=== PATIENT | male | born 1970 | race Caucasian/White ===

== ENCOUNTER 2023-07-18 03:29 | Emergency (ER) | payer BC, SELFPAY ==
[2023-07-18 03:29] VITALS: BP 175/109; PULSE 86; RESP 18; TEMP 36.5; O2SAT 99; BMI 29.6
--- NOTE | 2023-07-18 03:29 | XR_ITS ---
PROCEDURE INFORMATION: Exam: XR Chest Exam date and time: 07/18/2023 3:32 AM Age: 52 years old Clinical indication: Pain; Chest pressure; Additional info: Cp TECHNIQUE: Imaging protocol: Radiologic exam of the chest. Views: 1 view. COMPARISON: No relevant prior studies available. FINDINGS: Lungs: Unremarkable. No consolidation. Pleural spaces: Unremarkable. No pleural effusion. No pneumothorax. Heart/Mediastinum: Unremarkable. No cardiomegaly. Bones/joints: Unremarkable. IMPRESSION: No acute cardiopulmonary process.
--- NOTE | 2023-07-18 03:31 | ECG_ITS ---
APPROVED REPORT Exam: Resting ECG HR:77 bpm ECG Measurements Heart Rate 77 AXES SD 171 P 67 QRSd 117 QRS 39 QT 397 T 50 QTc 428 Conclusion SINUS RHYTHM MODERATE INTRAVENTRICULAR CONDUCTION DELAY [110+ ms QRS DURATION] BORDERLINE ECG UNCONFIRMED REPORT Electronically signed by : Jason Smart MD 07/18/2023 13:08:21
--- NOTE | 2023-07-18 03:49 | ED_ITS ---
Discharge Plan Disposition Patient Disposition: Home, Self-Care Referrals Follow up/Referrals: Quinn Lacy [Primary Care Provider] - See instructions Activity Restrictions/Add. Instructions Additional Instructions/Restrictions: Please follow-up with your primary care provider. Please return to the emergency department if you develop any new or worsening symptoms or become concerned for your health. Clinical Impressions Clinical Impression: Chest pain Qualifiers: Chest pain type: unspecified Qualified Code(s): R07.9 - Chest pain, unspecified Discharge ED Provider: Abhishek Lynn General Adult HPI General Chief complaint: Chest Pain Stated complaint: cp Time Seen by Provider: 07/18/23 03:31 Mode of Arrival: Ambulatory Source of Information: Patient Limitations: No Limitations Description of Symptoms (Recalled from ER Triage Doc. by RN): Pt presents with left anterior chest pain that began around 1800 after the pt finished his workshift. He thought maybe he pulled a muscle. Around 0300 pt awoke with increased pain. No cardiac hx, denies any SOA or nausea. History of Present Illness HPI narrative: 52-year-old male presents with central chest pain. Reports he felt some this evening, he awoke because the pain was worse. Reports some radiation to the left side. He reports no cardiac history. Reports he takes medications for hypertension. He denies any shortness of breath. Related Data Allergies Allergy/AdvReac Type Severity Reaction Status Date / Time No Known Allergies Allergy Verified 07/18/23 03:55 [facility] Disclaimer: The information contained in this section may have been updated after the patient was seen, as this information can be updated by other users. Social History Smoking Status: Never smoker alcohol intake: former current occupational status: employed Travel in the last 8 weeks: None ROS Obtained: Yes All systems reviewed & no additional complaints except as documented Physical Exam General General appearance: alert and in no apparent distress Head Head exam: atraumatic and normocephalic Eye Eye exam: Present normal appearance, PERRL and EOMI ENT ENT exam: Present normal oropharynx and normal external ear exam Neck Neck exam: Present normal inspection and full ROM Chest Chest inspection: Present normal inspection and symmetric chest wall rise; Absent tenderness Respiratory Respiratory exam: Present normal lung sounds bilaterally; Absent respiratory distress Cardiovascular Cardiovascular exam: Present regular rate and normal rhythm Abdominal Exam Abdominal exam: Present soft; Absent distention, tenderness or guarding Extremities Exam Extremities exam: Present normal inspection; Absent edema or joint swelling Back Exam Back exam: Present normal inspection; Absent tenderness Neurological Exam Neurological exam: Present alert and oriented X3; Absent motor sensory deficit Psychiatric Psychiatric exam: Present normal affect and normal mood Skin Skin exam: Present warm, dry and normal color Lymphatic Lymphatic Findings: no adenopathy Medical Decision Making Medical Records Medical records reviewed: Yes I reviewed the patient's medical records. Danny Inquiry Pt receiving controlled substance: No Danny was queried for this patient: No Vital Signs: 07/18/23 03:29 07/18/23 06:00 Temperature 97.7 F 97.7 F Temperature Source Oral Oral Pulse Rate 78 Pulse Rate [Left] 86 Respiratory Rate 18 18 Blood Pressure 154/96 H Blood Pressure [Right Arm] 175/109 H Blood Pressure Mean [Right Arm] 131 Blood Pressure Source Automatic Cuff Blood Pressure Source [Right Arm] Automatic Cuff Blood Pressure Position Sitting Blood Pressure Position [Right Arm] Sitting 02 Sat by Pulse Oximetry 99 Oxygen Delivery Method Room Air Room Air Lab Data Lab results reviewed: Yes I reviewed the patient's lab results. Lab Results 07/18/23 03:33: WBC 8.5, RBC 4.77, Hgb 14.8, Hct 44.0, MCV 92.4, MCH 31.1, MCHC 33.7, RDW 13.4, Plt Count 214, MPV 8.1, Neut % (Auto) 49.3, Lymph % (Auto) 38.7, Drew % (Auto) 7.2, Eos % (Auto) 3.7, Baso % (Auto) 1.0, Neut # (Auto) 4.2, Lymph # (Auto) 3.3, Drew # (Auto) 0.6, Eos # (Auto) 0.3, Baso # (Auto) 0.1, D-Dimer 0.45, Sodium 142, Potassium 3.5, Chloride 103, Carbon Dioxide 31 H, Anion Gap 11.5, BUN 12, Creatinine 1.10, Estimated Creat Clear 126, Estimated GFR 70, Est GFR ( Amer) 85, Glucose 92, Calcium 8.8, Total Bilirubin 0.5, AST 39, ALT 34, Alkaline Phosphatase 63, Troponin I < 0.01, Total Protein 7.7, Albumin 4.2, Globulin 3.5 H, Albumin/Globulin Ratio 1.2 07/18/23 05:30: Troponin I < 0.01 07/18/23 03:33 07/18/23 03:33 Orders (Tests/Meds): ED MEDICATIONS Discontinued Medications Generic Name Dose Route Start Last Admin Trade Name Freq PRN Reason Stop Dose Admin Acetaminophen 1,000 mg 07/18/23 03:44 07/18/23 03:51 Acetaminophen 500mg Tab PO 07/18/23 03:45 1,000 mg ONCE ONE Administration Aspirin 325 mg 07/18/23 03:44 07/18/23 03:51 Aspirin 325mg Tablet PO 07/18/23 03:45 325 mg ONCE ONE Administration Belladonna Alkaloids 60 ml 07/18/23 03:44 07/18/23 03:51 Belladonna Alkaloids 60 Ml Ml PO 07/18/23 03:45 60 ml ONCE ONE Administration Nitroglycerin 0.4 mg 07/18/23 03:44 07/18/23 03:52 Nitroglycerin 0.4mg Sl Tablet SL 08/17/23 03:43 0.4 mg Q5MINP PRN Administration Chest Pain ORDERS Category Date Time Status Chest XR -- portable [XR chest portable] Stat Exams 07/18/23 03:29 Completed CBC w/Auto Diff [Complete Blood Count Auto Diff] Stat Lab 07/18/23 03:33 Completed CMP [Comprehensive Metabolic Panel] Stat Lab 07/18/23 03:33 Completed D-Dimer Stat Lab 07/18/23 03:33 Completed Troponin I Q3H Lab 07/18/23 03:33 Completed Troponin I Q3H Lab 07/18/23 05:30 Completed ECG initial Besson Routine Y 07/18/23 03:31 Completed ECG Data Tracing #1: I reviewed this ECG and interpreted as documented below: Sinus rhythm, rate of 77, no concerning ST or T wave changes. ECG initial impression date: 07/18/23 ECG initial impression time: 03:36 HEART Score History (anamnesis): Moderately suspicious ECG: Normal Age: 45-65 years Risk factors: 1-2 risk factors Troponin: </= normal limit HEART Score: 3 Medical Decision Narrative: 52-year-old male, history of hypertension presents with central chest pain rating to the left side since yesterday evening, woke him from sleep today.. History was obtained via conversation with patient, family. On arrival, patient is [afebrile, hemodynamically stable, satting appropriately, alert, oriented x4, GCS 15], moving all extremities spontaneously. Full physical exam performed and significant for no significant physical exam abnormalities. Differential includes but is not limited to musculoskeletal chest pain, GERD, ACS, PE, pneumonia, pneumothorax. Patient was given full dose aspirin, GI cocktail for symptomatic management and correction of underlying abnormalities. Workup initiated including CBC CMP troponin D-dimer (unable to PERC out secondary to age) chest x-ray EKG. On re-evaluation, patient [remains afebrile, HD stable.] Patient reports symptomatic improvement. Laboratory workup independently interpreted by me and significant for initial negative troponin, CBC and CMP unremarkable, D-dimer within normal limits. Imaging independently interpreted by me and significant for chest x-ray without focal lung opacity or pneumothorax. See radiology read for full review of final results. EKG independently interpreted by me and significant for normal sinus rhythm as documented above. On reassessment, repeat troponin negative. Low concern for emergent pathology at this time. Patient encouraged to follow-up with PCP/cardiology. Procedures Risk/Benefits of Procedure(s) Were Explained: Yes Critical Care Critical Care Time Critical Care Time: No
[2023-07-18] MEDS: BELLADONNA ALKALOIDS 60 ML ML PO (03:51)
[2023-07-18] MEDS: ACETAMINOPHEN 500MG TAB 1000 MG PO (03:51)
[2023-07-18] MEDS: ASPIRIN 325MG TABLET 325 MG PO (03:51)
[2023-07-18] MEDS: NITROGLYCERIN 0.4MG SL TABLET 0.400000000000000022 MG SL (03:52)
[2023-07-18 03:54] LABS: Basophils # 0.1 K/mm3 (0-0.2); Eosinophils # 0.3 K/mm3 (0.0-0.4); Eosinophils % 3.7 % (0.1-12.0); Hemoglobin 14.8 g/dL (14.1-18.0); Lymphocytes # 3.3 K/mm3 (0.7-4.5); Lymphocytes % 38.7 % (10-50); Mean Corpuscular HGB Conc 33.7 g/dL (31.8-35.4); Mean Corpuscular Hemoglobin 31.1 pg (27.0-31.2); Mean Corpuscular Volume 92.4 fl (80-94); Mean Platelet Volume 8.1 fl (7.4-10.4); Monocytes # 0.6 K/mm3 (0.1-1.0); Monocytes % 7.2 % (1.7-9.3); Neutrophils # 4.2 K/mm3 (1.8-7.8); Neutrophils % 49.3 % (37.0-80.0); Platelet Count 214 K/mm3 (142-424); Red Blood Count 4.77 M/mm3 (4.60-6.20); Red Cell Distribution Width 13.4 % (11.5-17.5); White Blood Count 8.5 K/mm3 (4.8-10.8)
[2023-07-18 03:56] LABS: Chloride 103 mmol/L (98-107); Potassium 3.5 mmoL/L (3.5-5.1); Sodium 142 mmol/L (136-145)
[2023-07-18 03:59] LABS: Alanine Aminotransferase 34 U/L (12-78); Albumin Level 4.2 g/dl (3.5-5.0); Albumin/Globulin Ratio 1.2 (1.1-1.8); Alkaline Phosphatase 63 U/L (38-126); Anion Gap 11.5 mEq/L (5-15); Aspartate Amino Transferase 39 U/L (17-59); Bilirubin,Total 0.5 mg/dl (0.2-1.3); Blood Urea Nitrogen 12 mg/dl (9-20); Calcium 8.8 mg/dl (8.4-10.2); Carbon Dioxide 31 mmol/L (22.0-30.0); Creatinine Clearance Estimated 126 mL/min (50-200); Estimated Glomerular Filt Rate 70 ml/min (>60); GFR (African American) 85 ML/MIN (>60); Globulin 3.5 g/dL (1.3-3.2); Glucose 92 mg/dl (74-100); Total Protein,Serum 7.7 g/dl (6.3-8.2)
[2023-07-18 04:12] LABS: Troponin I < 0.01 ng/ml (0.00-0.034)
[2023-07-18 04:21] LABS: D-Dimer 0.45 ug/mL (0.0-0.5)
--- NOTE | 2023-07-18 04:40 | PC.NURSE ---
Pt state GI cocktail helped his chest pain, Dr Lynn updated
[2023-07-18 05:50] LABS: Troponin I < 0.01 ng/ml (0.00-0.034)
[2023-07-18 06:00] VITALS: BP 154/96; PULSE 78; RESP 18; TEMP 36.5; O2SAT 98
== END 2023-07-18 06:02 | disposition home or self-care (01) ==
PROVIDERS: Emergency Provider Emergency Medicine; PCP Internal Medicine
DX: R07.9 Chest pain, unspecified (principal); I10 Essential (primary) hypertension
CPT/HCPCS: 71045; 80053; 84484; 85025; 85378; 93005; 99285